=== PATIENT | male | born 1940 ===

== ENCOUNTER 2019-10-13 18:57 | Inpatient (IN) | payer OTHER ==
[~2019-10-13] VITALS: Ht 157.5 cm; Wt 59.0 kg
[~2019-10-13 18:57] MED LIST: ALLOPURINOL300 MG; GLIMEPIRIDE4 MG; GLUCOPHAGE XR500 MG; LYRICA50 MG; PLAVIX75 MG; TOPAMAX50 MG; ZOCOR80 MG
[2019-10-13] MEDS ORDERED: LANTUS SOL100 UNIT/1 (19:15)
--- NOTE | 2019-10-13 19:33 | NUR ---
PTE ALERTA Y ORIENTADO X3 EN SILLA DE MALVIN ACOMPNADO. PTE REFIERE QUE DESDE LAS 5PM DE HOY PRESENTA DOLOR DE PECHO OPRESIVO QUE SE IRRADIA HASTA LA ESPALDA. SE LE REALIZA EKG Y SE LE PRESENTA A . SE COLOCA A PTE EN UNIDAD DE CHEST PAIN.
--- NOTE | 2019-10-13 19:55 | NUR ---
PTE ES EVALUADO POR DR. ENGLISH QUIEN ORDENA CONECTAR A PTE EN MONITOR CARDIACO. SE CANALIZA Y SE COLECTAN MUESTRAS DE LABORATORIO BAJO MEDIDAS ASEPTICAS. SE PROVEE ENVASE PARA COLECTA DE ORINA. SE REALIZA CHEST PORTABLE POR PERSONAL DE XRAYS. PTE SE MANTIENE BAJO OBSERVACION POR CAMBIOS EN CONDICION.
== END 2019-10-14 13:31 | disposition designated cancer center or children's hospital (05) | DRG 282 ==
LOC: ER 18:57 → ICU-2 23:34 → ICU 10-14 03:41
PROVIDERS: ADMIT Internal Medicine
PROC: B246ZZZ Ultrasonography of Right and Left Heart (ICD-10-PCS; principal; 2019-10-13)
DX: I11.9 Hypertensive heart disease without heart failure (principal); I21.4 Non-ST elevation (NSTEMI) myocardial infarction; I07.1 Rheumatic tricuspid insufficiency; I34.0 Nonrheumatic mitral (valve) insufficiency; E13.9 Other specified diabetes mellitus without complications

== ENCOUNTER 2021-12-11 13:42 | Emergency (ER) | payer OTHER ==
[~2021-12-11] VITALS: Ht 172.7 cm; Wt 62.6 kg
[~2021-12-11 13:42] MED LIST changes: +LANTUS SOL100 UNIT/1
[2021-12-11] MEDS ORDERED: HUMALOG MI100 UNIT/2 (14:16)
[2021-12-11] MEDS ORDERED: COZAAR50 MG (14:17)
[2021-12-11] MEDS ORDERED: COZAAR25 MG (14:18)
[2021-12-11] MEDS ORDERED: LIPITOR40 MG (14:18)
== END 2021-12-11 19:37 | disposition home or self-care (01) ==
LOC: ER 13:42
DX: R42 Dizziness and giddiness (principal); Z20.822 Contact with and (suspected) exposure to COVID-19